=== PATIENT | male | born 1955 | race Caucasian/White ===

== ENCOUNTER 2018-10-23 09:18 | Outpatient (CLI) | payer MEDICARE ==
[2018-10-23 10:01] LABS: Estimated GFR-MDRD - POC Greater than 90
--- NOTE | 2018-10-23 13:30 | CT ---
CT OF CHEST AND ABDOMEN AND PELVIS PERFORMED WITH AND WITHOUT IV CONTRAST ENHANCEMENT: Date: 10/23/18 HISTORY: Shortness of breath on exertion. COPD exacerbation. Left renal mass noted on ultrasound. FINDINGS: There are some ground-glass opacities seen within the lung bases, which could be dependent atelectasi s versus some early scar formation. There are subtle areas of lucency suggesting an element of centri lobular emphysema. There is some pleural based scarring of the left upper lobe. There are some emphys ematous blebs seen within the upper lobes. In addition, there is a tiny, 2-3 mm interfissural node al joey the major fissure on the right, best seen on coronal image 97. There is no significant mediastina l or hilar adenopathy. Small axillary nodes are seen which do not appear pathologic in appearance. CT of abdomen was performed with and without contrast enhancement. The liver, spleen, and pancreas re gions, as well as gallbladder, appear unremarkable. Right and left adrenal glands are normal in appearance. Hypodense lesion is seen involving the left k idney. It does not show any contrast enhancement. It has CT Hounsfield unit numbers that are most com patible with a cyst, measures in the 11-12 mm range. There is a second smaller subcentimeter hypodens ity also within the left kidney. Difficult to characterize, but also statistically most likely a smal l cyst. No renal calculi or any concerning solid appearing mass seen. There is no significant periaortic or mesenteric adenopathy. CT of pelvis was performed with and without contrast enhancement. Prostate is mildly prominent. No ad enopathy, mass, or free fluid. Review of osseous structures show scoliosis and marked arthritic changes of the lumbar spine, and als o moderate arthritic changes of both hips. No concerning lytic or blastic bone lesions are seen. IMPRESSION: 1. Two small hypodense lesions involving the left kidney, one measuring 11-12 mm in size, and the ot her in the 6-7 mm range. They have characteristics most suggestive of small cysts. 2. Evidence for some centrilobular emphysema. There are two pleural based nodular densities within t he right lung, one along the right minor fissure measuring 8.0 mm in size and a smaller 3.0 mm nodula r density along the right minor fissure. Although these probably represent pleural based lymph nodes, I would recommend a short-term 3-[address] of the chest for assessment for stability. 3. Changes that could represent gravity-dependent atelectasis in the lower lobes, but also could rep resent intralobular interstitial scarring. If clinically indicated, this would be better assessed wit h high resolution chest CT done in both prone and supine positions. POS: [facility]
== END 2018-10-23 09:19 | disposition home or self-care (01) ==
LOC: SCSCT 09:18
DX: N28.89 Other specified disorders of kidney and ureter (principal); R06.02 Shortness of breath; J43.2 Centrilobular emphysema; E84.9 Cystic fibrosis, unspecified; R91.8 Other nonspecific abnormal finding of lung field
CPT/HCPCS: 71260; 74177; 82565

== ENCOUNTER 2020-05-29 14:03 | Outpatient (CLI) | payer MEDICARE, OTHER ==
--- NOTE | 2020-05-29 16:07 | MRI ---
MRI lumbar spine noncontrast: HISTORY: Lumbar foraminal stenosis COMPARISON: 12/22/2016 FINDINGS: Diffuse heterogeneity throughout the lumbar spine compatible with senescent change. There are type I and type II Modic changes at T12-L1, L2-L3 and L3-L4. There is no significant STIR hyperintensity suggest ligamentous injury or vertebral body edema from fracture Appropriate signal intensity visualized paraspinal muscles and solid organs. Left renal cortical cyst s are noted Conus medullaris terminates at the T12-L1 disc space Mild rightward curvature of the lumbar spine. [place] is at the L3-L4 level. T12-L1:: Desiccation with moderate loss of disc space height. Broad-based disc bulge with ligament fl avum thickening and facet hypertrophy. Mild central canal stenosis. Moderate to severe right and moderate left neural foraminal narrowing L1-L2:Severe loss of disc space height. Broad-based disc bulge. Mild central canal stenosis. Moderate bilateral neural foraminal narrowing L2-L3:Severe loss of disc space height. No significant central canal stenosis. Mild bilateral neural foraminal narrowing L3-L4:Desiccation with severe loss of disc space height. Broad-based disc bulge. There is facet hyper trophy. Mild central canal stenosis. Moderate to severe right and severe left neural foraminal narrowing L4-L5:Desiccation with mild loss of disc space height. Right hemilaminotomy defect. No significant ce ntral canal stenosis. Moderate bilateral neural foraminal narrowing L5-S1:Adequate disc hydration. Broad-based disc bulge abuts the thecal sac. There is ligamentum flavu m thickening and facet hypertrophy. Mild central canal stenosis. Narrowing of bilateral subarticular zones with partial obscuration bilateral traversing S1 nerve roots. There is an annular fissure involving the right subarticular zone and right foraminal component of the disc. Annular fissure abuts the traversing right S1 nerve root. Mild bilateral neural foraminal narrowing. IMPRESSION: Multilevel degenerative changes of the lumbar spine as described above. Transcribed Date/Time: 05/29/2020 4:11 PM
--- NOTE | 2020-05-29 16:16 | RAD ---
EXAM: POST VIEW: 05/29/20 HISTORY: MRI clearance. The patient indicates possible metal in eye previously. FINDINGS: There is a punctate focus of increased density overlying the right infraorbital rim. A prior CT examination dated 11/06/06 is reviewed. There is noted on that old study to be a punctate m etal foreign body in the superficial soft tissues at the level of the infraorbital rim. IMPRESSION: Small punctate metal foreign body overlying the infraorbital rim which on a prior CT scan is noted to be in the anterior superficial soft tissue and not in the right orbit. POS: OFF
== END 2020-05-29 14:04 | disposition home or self-care (01) ==
LOC: BICMRI 14:03
PROVIDERS: ATTEND Physical Medicine & Rehabilitation
DX: M47.26 Other spondylosis with radiculopathy, lumbar region (principal); M48.061 Spinal stenosis, lumbar region without neurogenic claudication; M47.27 Other spondylosis with radiculopathy, lumbosacral region; T15.91XA Foreign body on external eye, part unspecified, right eye, initial encounter
CPT/HCPCS: 70210; 72148

== ENCOUNTER 2020-10-06 13:00 | Outpatient (CLI) | payer MEDICARE, OTHER ==
--- NOTE | 2020-10-06 13:30 | RAD ---
Exam:Left elbow 2 views HISTORY: Lateral epicondylitis COMPARISON: None FINDINGS: No joint effusion. There are chronic changes involving the left elbow joint. No acute fract ure. IMPRESSION: Chronic changes.
--- NOTE | 2020-10-06 13:54 | CT ---
CT of thecervical spine: 10/06/2020 COMPARISON:None available HISTORY:Neck pain radiating down both arms with bilateral hand numbness, radiculopathy TECHNIQUE: Serial axial CT imaging at2 mm intervals from theskull base through the lung apices withou t contrast. Coronal and sagittal reformatted imaging obtained. Findings:The visualized lung apices demonstrate significant subcutaneous pleural emphysematous change . The occipital condyles, dens, and C1-2 articulation appear within normal limits. There is moderate degenerative change at the atlantoaxial interspace. There is osseous fusion at the C5-6 and C6-7 intervertebral discs. C2-3: Mild right facet and uncovertebral osteophyte formation. Mild right neural foraminal stenosis. No osseous cause of significant central canal or left neural foraminal stenosis. C3-4: There is disc space narrowing. There is facet and uncovertebral osteophyte formation on the rig ht with moderate right neural foraminal stenosis. Probable mild central canal stenosis on the basis of disc bulge. No osseous cause of significant left neural foraminal stenosis. C4-5: There is disc space narrowing with degenerative endplate change, vacuum disc formation, and a d isc osteophyte complex with probable moderate central canal stenosis. Prominent bilateral facet and uncovertebral osteophyte formation, left greater than right, with severe bilateral neural foraminal s tenosis. C5-6: No osseous cause of significant central canal or neural foraminal stenosis. There is facet join t fusion. C6-7: No osseous cause of significant central canal or neural foraminal stenosis C7-T1: There is disc space narrowing with degenerative endplate change as well as anterior and facility technician ior osteophyte formation. Bilateral facet and uncovertebral osteophyte formation noted. At least mild central canal stenosis is noted. There is severe bilateral neural foraminal stenosis. No acute fracture or dislocation. No worrisome lytic or blastic bone lesion. Impression:Prominent degenerative change of the cervical spine as detailed above.
== END 2020-10-06 13:01 | disposition home or self-care (01) ==
LOC: BICCT 13:00
PROVIDERS: ATTEND Physical Medicine & Rehabilitation
DX: M77.12 Lateral epicondylitis, left elbow (principal); G56.01 Carpal tunnel syndrome, right upper limb; M46.92 Unspecified inflammatory spondylopathy, cervical region; M47.22 Other spondylosis with radiculopathy, cervical region
CPT/HCPCS: 72125